=== PATIENT | female | born 1960 | race Caucasian/White ===

== ENCOUNTER → 2024-05-12 14:11 | Outpatient (REF) | payer BC, SELFPAY | LOC: RAD 14:11 | PROVIDERS: ATTENDING PHYSICIAN Internal Medicine | DX: J22 Unspecified acute lower respiratory infection (principal) | CPT/HCPCS: 71101 ==

== ENCOUNTER → 2024-07-13 19:06 | Outpatient (REF) | payer BC, SELFPAY | LOC: WDC 19:06 | PROVIDERS: ATTENDING PHYSICIAN Obstetrics & Gynecology Gynecology; FAMILY PHYSICIAN Internal Medicine | DX: Z12.31 Encounter for screening mammogram for malignant neoplasm of breast (principal) | CPT/HCPCS: 77063; 77067 ==

== ENCOUNTER → 2024-10-04 15:15 | Outpatient (REF) | payer BC, SELFPAY | LOC: RAD 15:15 | PROVIDERS: ATTENDING PHYSICIAN Internal Medicine | DX: M25.551 Pain in right hip (principal) | CPT/HCPCS: 73502 ==

== ENCOUNTER → 2024-11-20 10:32 | Outpatient (REF) | payer BC, SELFPAY | LOC: PAVMRI 10:32 | PROVIDERS: ATTENDING PHYSICIAN Internal Medicine; REFERRING PHYSICIAN Internal Medicine Rheumatology | DX: M25.50 Pain in unspecified joint (principal); M25.551 Pain in right hip; M87.051 Idiopathic aseptic necrosis of right femur; M70.61 Trochanteric bursitis, right hip | CPT/HCPCS: 73721 ==

== ENCOUNTER → 2024-12-23 08:41 | Outpatient (REF) | payer BC, SELFPAY | LOC: RAD 08:41 | PROVIDERS: ATTENDING PHYSICIAN Obstetrics & Gynecology Gynecology; FAMILY PHYSICIAN Internal Medicine; REFERRING PHYSICIAN Internal Medicine Rheumatology | DX: M81.0 Age-related osteoporosis without current pathological fracture (principal) | CPT/HCPCS: 77080 ==

== ENCOUNTER → 2025-04-05 07:07 | Outpatient (REF) | payer BC, SELFPAY | LOC: RAD 07:07 | PROVIDERS: ATTENDING PHYSICIAN Internal Medicine | DX: E04.1 Nontoxic single thyroid nodule (principal) | CPT/HCPCS: 76536 ==

== ENCOUNTER 2025-05-30 07:41 | Day surgery (SDC) | payer BC, SELFPAY | END 2025-05-30 12:01 | disposition home or self-care (01) | LOC: GI 07:41 | PROVIDERS: ATTENDING PHYSICIAN Internal Medicine Gastroenterology | DX: Z12.11 Encounter for screening for malignant neoplasm of colon (principal); K57.30 Diverticulosis of large intestine without perforation or abscess without bleeding; K64.8 Other hemorrhoids; K55.20 Angiodysplasia of colon without hemorrhage; D12.2 Benign neoplasm of ascending colon | CPT/HCPCS: 45385; 88305 ==